=== PATIENT | female | born 1990 | race Hispanic/Latino ===

== ENCOUNTER 2019-01-22 18:45 | Emergency (ER) | payer SELFPAY ==
[2019-01-22 19:11] LABS: BASO % 0.5 % (0.0-2.0); EOS % 0.3 % (0.0-4.0); LYMPH # 2.7 K/uL (1.0-4.3); LYMPH % 49.9 % (20.0-40.0); MEAN CELL VOLUME 91.2 fl (81.0-99.0); MEAN CORPUSCULAR HEMOGLOBIN 31.3 pg (27.0-31.0); MEAN CORPUSCULAR HGB CONC 34.3 g/dL (33.0-37.0); MEAN PLATELET VOLUME 7.2 fl (7.2-11.7); MONO # 0.4 K/uL (0.0-0.8); MONO % 8.2 % (0.0-10.0); NEUT # 2.2 K/uL (1.8-7.0); NEUT % 41.1 % (50.0-75.0); NRBC % 0.1 % (0.0-0.0); RBC 3.85 Mil/uL (3.80-5.20); RED CELL DISTRIBUTION WIDTH 13.5 % (11.5-14.5); WHITE BLOOD COUNT 5.4 K/uL (4.8-10.8)
[2019-01-22 19:26] LABS: ALB/GLOB RATIO 1.5 (1.0-2.1); ALBUMIN 4.6 g/dL (3.5-5.0); ALT/SGPT 30 U/L (9-52); AST/SGOT 44 U/L (14-36); BLOOD UREA NITROGEN 13 mg/dl (7-17); GFR NON-AFRICAN AMERICAN > 60
--- NOTE | 2019-01-22 19:44 | ED PDOC ---
HPI: Psych/Substance Abuse Time Seen by Provider: 01/22/19 18:53 Chief Complaint (Nursing): Substance Abuse Chief Complaint (Provider): AMS - Not answering questions History Per: Patient, EMS Modifying Factor(s): Alcohol Additional Complaint(s): 28 yo female brought in by EMS for evaluation of AMS. Pt acting bizarre in ER. Pt yelling and not answering questions. Past Medical History Reviewed: Unable To Obtain Primary Care Provider: FAMILY PROVIDER,NO - Family History Family History: States: Unknown Family Hx - Allergies Allergies/Adverse Reactions: Allergies Allergy/AdvReac Type Severity Reaction Status Date / Time Unobtainable Allergy Verified 01/22/19 18:51 Review of Systems Review Of Systems: ROS cannot be obtained secondary to pt's inabilty to answer questions. Physical Exam - Reviewed Nursing Documentation Reviewed: Yes Vital Signs Reviewed: Yes - Physical Exam Appears: Positive for: Well, Non-toxic, No Acute Distress Head Exam: Positive for: ATRAUMATIC, NORMAL INSPECTION, NORMOCEPHALIC Skin: Positive for: Normal Color, Warm, DRY Eye Exam: Positive for: Normal appearance, PERRL. Negative for: EOMI (Dialted) ENT: Positive for: Normal ENT Inspection Neck: Positive for: Normal, Painless ROM Cardiovascular/Chest: Positive for: Regular Rate, Rhythm Respiratory: Positive for: Normal Breath Sounds. Negative for: Accessory Muscle Use, Respiratory Distress Gastrointestinal/Abdominal: Positive for: Normal Exam, Soft Back: Positive for: Normal Inspection Extremity: Positive for: Normal ROM, Other (Abrasions nad ecchymosis on lower legs ) Neurological/Psych: Positive for: Awake, Alert, Normal Tone - Laboratory Results Result Diagrams: 01/22/19 19:00 01/22/19 19:00 Lab Results: Total Bilirubin 0.5 mg/dl (0.2-1.3) 01/22/19 19:00 AST 44 U/L (14-36) H 01/22/19 19:00 ALT 30 U/L (9-52) 01/22/19 19:00 Alkaline Phosphatase 69 U/L (38-126) 01/22/19 19:00 Total Protein 7.7 G/DL (6.3-8.2) 01/22/19 19:00 Albumin 4.6 g/dL (3.5-5.0) 01/22/19 19:00 Globulin 3.1 gm/dL (2.2-3.9) 01/22/19 19:00 Albumin/Globulin Ratio 1.5 (1.0-2.1) 01/22/19 19:00 Medical Decision Making Medical Decision Making: Endorsed pending re-evaluation. Disposition - Clinical Impression Clinical Impression: Alcohol abuse - Disposition Disposition: Transfer of Care Disposition Time: 19:44 Condition: STABLE
--- NOTE | 2019-01-22 20:12 | ED PDOC ---
- Laboratory Results Result Diagrams: 01/22/19 19:00 01/22/19 19:00 Lab Results: Total Bilirubin 0.5 mg/dl (0.2-1.3) 01/22/19 19:00 AST 44 U/L (14-36) H 01/22/19 19:00 ALT 30 U/L (9-52) 01/22/19 19:00 Alkaline Phosphatase 69 U/L (38-126) 01/22/19 19:00 Total Protein 7.7 G/DL (6.3-8.2) 01/22/19 19:00 Albumin 4.6 g/dL (3.5-5.0) 01/22/19: Globulin 3.1 gm/dL (2.2-3.9) 01/22/19: Albumin/Globulin Ratio 1.5 (1.0-2.1) 01/22/19 19:00 - ECG O2 Sat by Pulse Oximetry: 95 - Progress ED Course And Treament: PATIENT RE-EVALUATED AT 21:41PM PERSISTENTLY AGITATED. ATIVAN 2 MG IM X 1 DOSE Patient taken out of restraints by 10:45pm pateint re-evaluated at 04:00am. Patient appears sober with steady gait. Seen by crisis d/w Dr. Wood d/c briana . Diagnosis Alcohol intoxication. Disposition - Clinical Impression Clinical Impression: Alcohol abuse - POA Present On Arrival: None - Disposition Referrals: [facility] [place] [Outside] Disposition: Routine/Home Disposition Time: 04:32 Condition: STABLE Instructions: Alcohol Use - When Is Drinking a Problem?, Alcohol Abuse and Alcoholism (DC)
[2019-01-23 01:08] LABS: BARBITURATES, UR NEGATIVE (NEGATIVE); BENZODIAZEPINES, UR NEGATIVE (NEGATIVE); OPIATES, UR NEGATIVE (NEGATIVE); PHENCYCLIDINE, UR NEGATIVE (NEGATIVE)
[2019-01-23 02:43] VITALS: RESP 16
[2019-01-23 05:08] VITALS: BP 104/58; PULSE 88; TEMP 97.8; O2SAT 96
--- NOTE | 2019-01-23 19:03 | CARD ---
APPROVED REPORT Date of service: 01/22/2019 EKG Measurement Heart [id number] <Conclusion> Sinus tachycardia Otherwise normal ECG
== END 2019-01-23 05:07 | disposition home or self-care (01) ==
LOC: H.ER 18:45
DX: F10.10 Alcohol abuse, uncomplicated (principal)
CPT/HCPCS: 80053; 81025; 84703; 85025; 93005; 96372; 99285; G0480; J2060